=== PATIENT | female | born 1950 | race Caucasian/White ===

== ENCOUNTER → 2017-10-22 | Outpatient (CLI) | payer MEDICARE, BC ==
[2017-10-22 13:52] LABS: URINE APPEARANCE CLEAR; URINE BILIRUBIN NEGATIVE (NEGATIVE); URINE BLOOD NEGATIVE (NEGATIVE); URINE COLOR YELLOW; URINE GLUCOSE NEGATIVE (NEGATIVE); URINE KETONE NEGATIVE (NEGATIVE); URINE LEUKOCYTE ESTERASE NEGATIVE (NEGATIVE); URINE NITRATE NEGATIVE (NEGATIVE); URINE PROTEIN(semi-quant) TRACE mg/dL (NEGATIVE); URINE UROBILINOGEN NORMAL (NORMAL)
[2017-10-22 13:54] LABS: URINE MUCUS PRESENT (NOT PRESENT)
== END ==
LOC: LAB 12:43
PROVIDERS: Family Medicine
DX: R30.0 Dysuria (principal)

== ENCOUNTER → 2018-05-05 | Outpatient (CLI) | payer MEDICARE, BC ==
[2018-05-05 11:56] LABS: EOS # 0.1 (0.04-0.40); EOS % 0.6 % (1.0-5.0); HEMATOCRIT 44.7 % (37.0-47.0); HEMOGLOBIN 14.9 g/dL (12.5-16.0); LYMPH# 2.5 (1.50-4.00); MEAN CELL VOLUME 97 fl (78-100); MEAN CORPUSCULAR HEMOGLOBIN 33 pg (27-31); MEAN CORPUSCULAR HGB CONC 33 g/dL (33-37); MEAN PLATELET VOLUME 9.2 fl (7.4-10.4); MONO # 0.7 (0.20-0.80); NEU # 7.9 (1.40-6.50); PLATELET COUNT 240 K/mm3 (130-400); RED BLOOD COUNT 4.59 M/mm3 (4.10-5.30); RED CELL DISTRIBUTION WIDTH 13.6 % (11.5-14.5); WHITE BLOOD COUNT 11.3 K/mm3 (4.8-10.8)
[2018-05-05 12:11] LABS: ALBUMIN 4.4 g/dL (3.5-5.0); BUN/CREATININE RATIO 26.4 (6.0-26.0); CALCIUM 8.5 mg/dL (8.4-10.2); POTASSIUM 3.7 mmol/L (3.6-5.0); TOTAL BILIRUBIN 1.3 mg/dL (0.2-1.3); TOTAL PROTEIN 8.1 g/dL (6.3-8.2)
== END ==
LOC: LAB 11:34
PROVIDERS: Family Medicine
DX: M50.321 Other cervical disc degeneration at C4-C5 level (principal); E03.4 Atrophy of thyroid (acquired); E55.9 Vitamin D deficiency, unspecified

== ENCOUNTER → 2018-05-20 | Outpatient (CLI) | payer MEDICARE, BC | LOC: RAD 08:21 | DX: K76.0 Fatty (change of) liver, not elsewhere classified (principal); N27.0 Small kidney, unilateral; G54.0 Brachial plexus disorders; R74.8 Abnormal levels of other serum enzymes; Z98.890 Other specified postprocedural states ==

== ENCOUNTER → 2018-08-11 | Outpatient (CLI) | payer MEDICARE, BC | LOC: RAD 16:51 | DX: R41.3 Other amnesia (principal) ==

== ENCOUNTER → 2018-08-19 | Day surgery (SDC) | payer MEDICARE, BC | LOC: MSO 14:04 | DX: Z12.11 Encounter for screening for malignant neoplasm of colon (principal); K57.90 Diverticulosis of intestine, part unspecified, without perforation or abscess without bleeding; K64.8 Other hemorrhoids; K31.84 Gastroparesis; K21.0 Gastro-esophageal reflux disease with esophagitis; K30 Functional dyspepsia; Z86.73 Personal history of transient ischemic attack (TIA), and cerebral infarction without residual deficits; E07.9 Disorder of thyroid, unspecified; Z79.899 Other long term (current) drug therapy | CPT/HCPCS: 00813; A4649; J2704; J3010; J7120 ==

== ENCOUNTER → 2018-10-16 | Outpatient (CLI) | payer MEDICARE, BC ==
[2018-10-16 13:03] LABS: EOS # 0.1 (0.04-0.40); EOS % 0.5 % (1.0-5.0); HEMATOCRIT 46.1 % (37.0-47.0); HEMOGLOBIN 15.1 g/dL (12.5-16.0); LYMPH# 3.4 (1.50-4.00); MEAN CELL VOLUME 98 fl (78-100); MEAN CORPUSCULAR HEMOGLOBIN 32 pg (27-31); MEAN CORPUSCULAR HGB CONC 33 g/dL (33-37); MEAN PLATELET VOLUME 9.9 fl (7.4-10.4); MONO # 0.9 (0.20-0.80); NEU # 7.4 (1.40-6.50); PLATELET COUNT 273 K/mm3 (130-400); RED BLOOD COUNT 4.71 M/mm3 (4.10-5.30); RED CELL DISTRIBUTION WIDTH 13.2 % (11.5-14.5); WHITE BLOOD COUNT 11.8 K/mm3 (4.8-10.8)
[2018-10-16 13:05] LABS: ALBUMIN 4.6 g/dL (3.5-5.0); CALCIUM 9.3 mg/dL (8.4-10.2); POTASSIUM 3.4 mmol/L (3.6-5.0); TOTAL BILIRUBIN 0.8 mg/dL (0.2-1.3); TOTAL PROTEIN 7.6 g/dL (6.3-8.2)
[2018-10-16 14:10] LABS: ERYTHROCYTE SEDIMENTATION RATE 10 mm/hr (0-30)
== END ==
LOC: RAD 09:36 → LAB 09:36 → RAD 10:00
PROVIDERS: Family Medicine
DX: R93.5 Abnormal findings on diagnostic imaging of other abdominal regions, including retroperitoneum (principal); J06.9 Acute upper respiratory infection, unspecified; R05 Cough; K31.84 Gastroparesis; E03.4 Atrophy of thyroid (acquired); E27.40 Unspecified adrenocortical insufficiency; Z98.890 Other specified postprocedural states
CPT/HCPCS: Q9967